=== PATIENT | male | born 1955 | race Caucasian/White ===

== ENCOUNTER 2019-03-02 23:32 | Emergency (ER) | payer OTHER ==
[~2019-03-02] VITALS: Ht 180.3 cm; Wt 92.5 kg
[2019-03-02 23:39] VITALS: BP 147/103; Ht 180.3 cm; Wt 92.5 kg
== END 2019-03-03 00:23 | disposition home or self-care (01) ==
LOC: ED 23:32
DX: T81.30XA Disruption of wound, unspecified, initial encounter (principal); E78.00 Pure hypercholesterolemia, unspecified; Z98.890 Other specified postprocedural states